=== PATIENT | female | born 2000 | race Caucasian/White ===

== ENCOUNTER 2023-01-05 21:56 | Emergency (ER) | payer OTHER, BC ==
[2023-01-05 22:49] LABS: Pregnancy Test - Urine (BHCG) Negative (Negative); Specific Gravity 1.015 (1.002-1.036)
[2023-01-05 22:50] LABS: Pregu Control Background? CLEAR/WHITE (CLR/WHITE); Pregu Control Bar Appear? YES (CONTROL BAR)
[2023-01-05] MEDS ORDERED: Ibuprofen 200 MG TAB ONE (23:42)
== END 2023-01-05 22:45 | disposition home or self-care (01) ==
LOC: CSHERS 21:56
DX: Z04.1 Encounter for examination and observation following transport accident (principal)
CPT/HCPCS: 71045; 81025